=== PATIENT | female | born 1970 | race Caucasian/White ===

== ENCOUNTER 2019-07-28 05:09 | Inpatient (IN) ==
[2019-07-21 14:25] LABS: Appearance,Urine CLEAR; Bacteria,Urine 0 /hpf (0); Bilirubin,Urine NEG (NEG); Color,Urine STRAW; Culture Indicated,Urine NO; Glucose,Urine (UA) NEGATIVE (NEG); Ketones,Urine NEG (NEG); Leukocyte Esterase,Urine 75 /uL (NEG); Mucus,Urine FEW /hpf (0); Nitrate,Urine NEG (NEG); Protein,Urine NEG (NEG); Specific Gravity,Urine 1.005 (1.000-1.035); Urine Blood 0.03 mg/dL (<0.03); Urine Hyaline Cast 2 /lpf (0-2); Urine RBC < 1 /hpf (0-1); Urine Squamous Epithelial Cell 1 /hpf (0-4); Urine WBC < 1 /hpf (0-4); Urobilinogen,Urine NEG (NEG)
[2019-07-21 15:07] LABS: INR 0.9 (0.9-1.1); Prothrombin Time 12.3 sec (11.9-14.5)
[2019-07-21 15:22] LABS: Basophils # (Auto) 0 K/mcL (0.0-0.3); Basophils % (Auto) 0.6 % (0.0-2.0); Eosinophils # (Auto) 0 K/mcL (0.0-0.7); Eosinophils % (Auto) 0.4 % (0.0-7.0); Granulocytes % (Auto) 76.2 % (38.0-78.0); Hematocrit 39.6 % (36.0-48.0); Hemoglobin 13.2 g/dL (12.0-15.0); Lymphocytes # (Auto) 1.1 K/mcL (1.5-4.8); Lymphocytes % (Auto) 16.2 % (15.5-49.0); Mean Cell Volume 86.6 fL (80.0-100.0); Mean Corpuscular HGB Conc 33.4 g/dL (31.0-36.0); Mean Platelet Volume 9.1 fL (7.4-10.4); Monocytes # (Auto) 0.4 K/mcL (0.1-0.9); Monocytes % (Auto) 6.6 % (1.0-12.0); Platelet Count 214 K/mcL (140-440); RBC 4.57 M/mcL (4.00-5.20); Red Cell Distribution Width 14.6 % (11.5-14.5); WBC 6.7 K/mcL (4.5-11.0)
[2019-07-21 15:36] LABS: Blood Urea Nitrogen 16 mg/dl (6-20); Calcium 9.4 mg/dl (8.6-10.4); Carbon Dioxide 19 mmol/L (22-30); Chloride 100 mmol/L (96-108); Glomerular Filtration Rate 106; Glucose 84 mg/dL (70-105)
[~2019-07-28 05:09] MED LIST: IPRATROPIUM/ALBUTEROL 3 ML AMPUL.NEB NEB PRN; SCOPOLAMINE 1 PATCH PATCH TOPICAL PRN
[2019-07-28] MEDS ORDERED: CELECOXIB 200 MG CAPSULE PO SCH (06:00)
[2019-07-28] MEDS ORDERED: PREGABALIN 100 MG CAPSULE PO SCH (06:00)
[2019-07-28] MEDS ORDERED: 0.9 % SODIUM CHLORIDE 9 ML, KETOROLAC 30 MG, ROPIVACAINE HCL/PF 49.5 ML, EPINEPHrine 0.... IJ SCH (06:00)
[2019-07-28] MEDS ORDERED: oxyCODONE 10 MG TAB.ER.12H PO SCH (06:00)
[2019-07-28] MEDS ORDERED: ceFAZolin 2 GM in DEXTROSE 5% IN WATER 50 ML IV SCH (06:00)
[2019-07-28] MEDS ORDERED: GENTAMICIN SULFATE 800 MG/20 ML VIAL IR ONE (07:37)
[2019-07-28] MEDS ORDERED: ROPIVACAINE HCL/PF 20 ML VIAL IJ ONE (08:15)
[2019-07-28] MEDS ORDERED: ONDANSETRON 4 MG/2 ML VIAL IV ONE (08:15)
[2019-07-28] MEDS ORDERED: PROPOFOL 200 MG/20 ML VIAL IV ONE (08:15)
[2019-07-28] MEDS ORDERED: PHENYLEPHRINE 10 MG/ML VIAL IV ONE (08:15)
[2019-07-28] MEDS ORDERED: ePHEDrine 50 MG/ML AMPUL IV ONE (08:15)
[2019-07-28] MEDS ORDERED: GLYCOPYRROLATE 0.2 MG/ML VIAL IV ONE (08:15)
[2019-07-28] MEDS ORDERED: DEXAMETHASONE 4 MG/ML VIAL IV ONE (08:15)
[2019-07-28] MEDS ORDERED: KETAMINE 100 MG/ML ML IV ONE (08:15)
[2019-07-28] MEDS ORDERED: LIDOCAINE HCL/PF 100 MG/5 ML SYRINGE IV ONE (08:15)
[2019-07-28] MEDS ORDERED: TRANEXAMIC ACID 1,000 MG/10 ML VIAL IV ONE ×2 (08:15→09:42)
--- NOTE | 2019-07-28 09:40 | Brief Operative Note ---
Date of procedure: 07/28/19 Pre-op diagnosis: left knee oa Post-op diagnosis: same Procedure: left total knee arthroplasty Grafts/Implants: Yes Anesthesia: spinal Complications: none Surgeon: Bill Luevano Inker Machine: Forrest Castaneda Estimated blood loss (cc): 200 Tourniquet Time (Minutes): 50 Specimens Removed/Pathology: none sent Condition: stable Disposition: PACU
[2019-07-28] MEDS ORDERED: ONDANSETRON 4 MG ODT TABLET PO PRN (09:41)
--- NOTE | 2019-07-28 09:41 | Discharge Summary ---
Ortho Discharge - TKA - Patient Instructions Diet: Regular Diet Activity: ambulate with assistive device, weight bearing as tolerated Total Knee Protocol: For Total Knee: Start ROM GABRIEL with stationary bike or rocking chair. Work on gaining full extension of knee. Posterior dislocation precautions provided. Hip abductor strengthening and gait training instructions provided. Apply Cryocuff as instructed. Dressing Care: May shower in 2 days - Follow Up Plan Follow Up Appointments: Anisa Baron PA-C [Physician Photographer'S Assistant] - 08/11/19 8:40 am Disposition: Home, Self-Care Prognosis: Good Rehab Potential: Good I certify that the patient requires SNF services: No Overall status at discharge: patient is progressing back to baseline
[2019-07-28] MEDS ORDERED: BENZOCAINE/MENTHOL 1 LOZENGE PO PRN (09:42)
[2019-07-28] MEDS ORDERED: FLEETS ADULT ENEMA PR PRN (09:42)
[2019-07-28] MEDS ORDERED: POLYETHYLENE GLYCOL 3350 17 GM PACKET PO PRN (09:42)
[2019-07-28] MEDS ORDERED: MAGNESIUM HYDROXIDE 30 ML ORAL.SUSP PO PRN (09:42)
[2019-07-28] MEDS ORDERED: BISACODYL 10 MG SUPP.RECT PR PRN (09:42)
[2019-07-28] MEDS ORDERED: ONDANSETRON 4 MG/2 ML VIAL IV PRN ×2 (09:42→10:13)
[2019-07-28] MEDS ORDERED: ACETAMINOPHEN 325 MG TABLET PO PRN (09:42)
[2019-07-28] MEDS ORDERED: EPINEPHRINE 0.3 MG IM SCH (09:45)
--- NOTE | 2019-07-28 10:04 | Operative Note ---
DATE OF OPERATION: 07/28/2019 PREOPERATIVE DIAGNOSIS: Degenerative joint disease, left knee. POSTOPERATIVE DIAGNOSIS: Degenerative joint disease, left knee. PROCEDURE: Left total knee arthroplasty. SURGEON: Deepthi Luevano M.D. FOOD SERVICE ORDER CLERK SURGEON: Aristeo Castaneda PA-C. The PA's assistance was required for the safe and efficient completion of the entire case. This provider's expertise and technical skill were required throughout the case. The PA assisted with preoperative coordination, intraoperative retraction, wound closure, dressing and splint application, as well as postoperative documentation and care coordination. ANESTHESIA: Spinal with LMA assist. ESTIMATED BLOOD LOSS: 200 mL. COMPLICATIONS: None noted. SPECIMENS REMOVED: None. DRAINS: None. TOURNIQUET TIME: 50 minutes at 300 mmHg. IMPLANTS: DePuy CMW2 gentamicin bone cement 20 grams x4; DePuy Attune femoral posterior stabilized size 5 left, narrow; DePuy Attune tibial insert fixed bearing posterior stabilized size 5, 5 mm AOX; DePuy Attune tibial base fixed bearing size 4 cemented; DePuy Attune patella medialized dome 38 mm cemented AOX. INDICATIONS: The patient has had a long-standing history of worsening pain in the knee that has failed conservative treatment. Radiographs have confirmed advanced degenerative joint disease. After a long discussion about treatment options, the patient elected to proceed with a knee arthroplasty. The risks and benefits were discussed with the patient in detail including, but not limited to, the risks of anesthesia, problems with the heart or lungs related to anesthesia, infection, compromise or injury to the nerves and blood vessels, deep venous thrombosis, pulmonary embolism, pneumonia, continued pain after surgery, worsening pain or symptoms after surgery, swelling, loss of motion, instability, leg length discrepancy, and need for repeat surgery. DESCRIPTION OF PROCEDURE: The patient was seen in the pre-anesthesia waiting room where all questions were answered and the correct side and site were identified and marked. The patient was transferred to the operating room and administered the anesthetic and given pre-operative antibiotics. A time-out was then called. The extremity was prepped and draped, exsanguinated, and the tourniquet was inflated to 300 mmHg. A midline skin incision was then made with a standard medial parapatellar arthrotomy. Debridement of the menisci, ACL, and PCL was performed followed by balancing releases in the medial lateral plane. We then established intramedullary access to both the femur and tibia in a standard fashion. The femoral guide tashi was initially placed with the distal femoral guide, pinned into place, and the distal femoral cut was performed and checked with a flat plate. We then turned our attention to the tibia. The intramedullary guide was placed with the proximal tibial cutting block. The block was appropriately positioned off the affected side, varus and valgus was checked with the extra-medullary guide, and the block was pinned into place. The proximal tibial cut was performed and the tibia was prepared for the tibial implant with appropriate rotation. The tibia, femur, and posterior compartment were debrided of osteophytes, loose bodies, and meniscal fragments We then used the gap balancing technique to balance extension with the first two cuts and good balancing was obtained with a 10 millimeter gap block. We turned our attention back to the femur and used the referencing block and implant to size appropriately. Using the gap balancing technique for the flexion space we set our rotation of the femur off the tibial cut. Anesthesia gave the patient 1 gram of Tranexamic Acid via an intravenous route. We placed the 4 in 1 cutting block and made anterior, posterior, and chamfer cuts. Box plasty cuts were then made in a standard fashion for the posterior stabilized prosthesis. We then completed osteophyte release and posterior capsule release from the posterior compartment. Trials were placed and we chose the polyethylene insert thickness that provided the best stability in all planes. With the trials in place, we did a measured resection for a resurfacing patella. We sized the patella and placed the patella trial and performed a lateral facetectomy with the saw and rongeur. Good tracking was obtained. We removed all trials, irrigated and dried all cut surfaces. We cemented the components into place including tibia, femur and patella. We placed a trial liner and held the knee in full extension with the patella compressed while the cement cured. We then removed all excess cement and placed the final polyethylene tibiofemoral component. Irrigation with 3 liters of antibiotic saline was then performed using jet-lavage. We let the tourniquet down and coagulated bleeding vessels. We injected a 100 cubic centimeter volume including Ropivacaine 49.25 cubic centimeters at 5 milligrams per cubic centimeter, Ketorolac 30 milligrams, and Epinephrine 0.5 milligrams into 100 cubic centimeters volume of normal saline. We closed the retinaculum with # 2 Stratafix and 0 Vicryl. We closed the subcutaneous tissue and skin in layers out to Dermabond on the skin. A sterile pressure dressing was applied. All needle and sponge counts were correct. The patient was transferred to the recovery room in stable condition. DUSTIN:gerri Job ID: [id number] Doc ID: [id number] Deepthi Luevano MD
[2019-07-28] MEDS ORDERED: ACETAMINOPHEN 1,000 MG/100 ML BOTTLE IV ONE (10:13)
[2019-07-28] MEDS ORDERED: KETOROLAC 30 MG/ML VIAL IV PRN (10:13)
[2019-07-28] MEDS ORDERED: diphenhydrAMINE 50 MG/ML VIAL IV PRN (10:13)
[2019-07-28] MEDS ORDERED: fentaNYL 100 MCG/2 ML VIAL IV PRN (10:13)
[2019-07-28] MEDS ORDERED: IPRATROPIUM/ALBUTEROL 3 ML AMPUL.NEB NEB PRN (10:13)
[2019-07-28] MEDS ORDERED: LACTATED RINGERS 250 ML IV PRN (10:13)
[2019-07-28] MEDS ORDERED: NALOXONE HCL 0.4 MG/ML VIAL IV PRN (10:13)
[2019-07-28] MEDS ORDERED: PROMETHAZINE 25 MG/ML VIAL IV PRN (10:13)
[2019-07-28] MEDS ORDERED: MEPERIDINE 25 MG/ML SYRINGE IV PRN (10:13)
[2019-07-28] MEDS ORDERED: LACTATED RINGERS 1,000 ML IV SCH (10:15)
--- NOTE | 2019-07-28 10:54 | XRay Report ---
CLINICAL INFORMATION: Post-Op Total Knee COMPARISON: None. FINDINGS: Total knee prostheses is anatomically aligned. No osseous abnormality. Soft tissue swelling seen. IMPRESSION: Negative Interpreted and Authenticated by: Bill Holland 07/28/19
[2019-07-28] MEDS: LACTATED RINGERS 1,000 ML IV SCH ×2 (11:26→21:57)
[2019-07-28] MEDS: KETOROLAC 15 MG/ML VIAL IV SCH ×3 (12:04→23:32)
[2019-07-28] MEDS: METOCLOPRAMIDE 10 MG TABLET PO SCH ×3 (12:59→21:28)
[2019-07-28] MEDS: HYDROcodone/APAP 10/325MG TABLET PO PRN ×3 (12:59→23:32)
[2019-07-28] MEDS ORDERED: 0.9 % SODIUM CHLORIDE 500 ML IV ONE (13:39)
[2019-07-28] MEDS: 0.9 % SODIUM CHLORIDE 10 ML SYRINGE IV SCH ×2 (16:27→21:58)
[2019-07-28] MEDS: ceFAZolin 1 GM VIAL IV SCH ×2 (16:36→23:32)
--- NOTE | 2019-07-28 17:22 | Internal Medicine Consult Note ---
Medical - CN: HPI - Data of Consult Patient: new to practice Consult date: 07/28/19 Primary Care Provider: Bill Davila MD - Consult Narrative History of present illness: Ms. Pederson is a 49 year old F with a history of Navdeep-Danlos syndrome, PTSD, anxiety, depression, and a history of lymphoma and the ovarian cancer who u nderwent Left total knee arthroplasty by Dr. Snowden today. Her blood pressure was not found to be low/soft. Hospitalist service consult was requested by Dr. Snowden for managing blood pressure. When I saw this patient in her room, she only complaint of mild left leg pain. Otherwise she denied headache, dizziness, chest pain, shortness of breath, nausea, vomiting, abdominal pain, or dysuria. She told me that her blood pressure has been low. Normally her blood pressure can be 70- to 90. CC: Bill Luevano - Constitutional Constitutional: Present: as per HPI - EENT Eyes: Present: as per HPI - Cardiovascular Cardiovascular: Present: as per HPI - Respiratory Respiratory: Present: as per HPI - Gastrointestinal Gastrointestinal: Present: as per HPI - Musculoskeletal Musculoskeletal: Present: other (Left knee pain) - Integumentary Integumentary: Present: as per HPI - Neurological Neurological: Present: as per HPI - Psychiatric Psychiatric: Present: as per HPI - Hematologic/Lymphatic Hematologic/Lymphatic: Present: as per HPI Medical - CN: PMH Medical history: Navdeep-Danlos syndrome, PTSD, anxiety, depression, and a history of lymphoma and the ovarian cancer Family history: reviewed and not pertinent (Father had a stroke; mother has diabetes) Smoking status: Former smoker Medical - CN: Meds Home Medications Medication Instructions Recorded Confirmed Type clonazepam 1 mg tablet 1 mg PO BID 09/02/18 07/28/19 History duloxetine 30 mg capsule,delayed 120 mg PO DAILY cap 09/02/18 07/28/19 History release epinephrine 0.3 mg/0.3 mL 0.3 mg IM .COMPLEX 09/02/18 07/28/19 History injection, auto-injector famotidine 40 mg tablet 40 mg PO BID 09/02/18 07/28/19 History latanoprost 0.005 % eye drops 1 drp OU HS 09/02/18 07/28/19 History metoclopramide HCl 5 mg tablet 5 mg PO ACHS tab 09/02/18 07/28/19 History ondansetron 4 mg disintegrating 4 mg PO DAILYP PRN 09/02/18 07/28/19 History tablet polyethylene glycol 3350 17 17 gm PO MOWEFR@0900 g 09/02/18 07/28/19 History gram/dose oral powder prazosin 1 mg capsule 2 mg PO HS cap 09/02/18 07/28/19 History Montelukast [Singular] 10 mg PO DAILY 07/21/19 07/28/19 History Pregabalin 100 mg PO BID 07/21/19 07/28/19 History Aspirin [Aspirin EC] 81 mg PO BID #30 tablet. 07/28/19 Rx HYDROcodone/APAP 10/325MG [[place] 1 - 2 tab PO Q4H PRN #60 tab 07/28/19 Rx 10-325Mg] Allergies Allergy/AdvReac Type Severity Reaction Status Date / Time Bee Pollen Allergy Severe Anaphylaxis Verified 02/14/19 15:50 Ritodrine [From Yutopar] AdvReac Severe Other Verified 07/28/19 05:44 gabapentin AdvReac Intermediate Seizure Verified 07/28/19 05:44 Medical - CN: Exam - Constitutional Vitals: Temp Pulse Resp BP Pulse Ox 98.2 F 68 18 85/49 97 07/28/19 10:59 07/28/19 14:32 07/28/19 14:32 07/28/19 14:32 07/28/19 14:32 General appearance: no acute distress - Eye Eye exam: Present: EOMI, PERRL - ENT ENT exam: Present: normal exam - Neck Neck exam: Present: normal inspection - Respiratory Respiratory exam: Present: normal respiratory exam, CTAB - Cardiovascular Cardiovascular exam: Present: normal rate and rhythm. Absent: JVD - GI/Abdominal GI/Abdominal exam: Present: normal bowel sounds, soft. Absent: tenderness - Extremities Exam Extremities exam: Absent: pedal edema (Surgical dressing on left leg dry) - Neurological Exam Neurological exam: Present: alert, altered, oriented X3. Absent: motor sensory deficit (No focal neurological deficit) - Psychiatric Psychiatric exam: Present: normal affect, normal mood - Skin Skin exam: Present: warm Medical - CN: Result - Labs CBC & Chem 7: 07/21/19 11:42 07/21/19 11:42 Medical - CN: A/P - Narrative A/P Narrative: Assessment: 1. Left knee OA, s/p Left total knee arthroplasty by Dr. Luevano - 07/28/2019 2. Hypotension 3. Anxiety/depression 4. PTST 5. Navdeep-Danlos syndrome 6. Hx of lymphoma and overian cancer. Plan: 1. Postop management including DVT prophylaxis and pain control by Orth team 2. As per patient, her blood pressure has been low. Normally her blood pressure can be 70- to 90. 500ml normal saline bolus was given. Continue IV fluid. Continue to monitor her blood pressure 3. Continue her home anxiety and depression medication 4. DVT prophylaxis: Managed by Ortho team 5. CODE STATUS: Full
[2019-07-28] MEDS: 0.9 % SODIUM CHLORIDE 1,000 ML IV SCH (17:36)
[2019-07-28] MEDS ORDERED: LATANOPROST OPHTH DROPS 2.5ML BOTTLE OU SCH (21:00)
[2019-07-28] MEDS ORDERED: SENNOSIDES 1 TABLET PO SCH (21:00)
[2019-07-28] MEDS ORDERED: PRAZOSIN 1 MG CAPSULE PO SCH (21:00)
[2019-07-28] MEDS: PREGABALIN 100 MG CAPSULE PO SCH (21:26)
[2019-07-28] MEDS: FAMOTIDINE 20 MG TABLET PO SCH (21:27)
[2019-07-28] MEDS: DOCUSATE SODIUM 100 MG CAPSULE PO SCH (21:27)
[2019-07-28] MEDS: clonazePAM 1 MG TABLET PO SCH (21:28)
[2019-07-28] MEDS ORDERED: ASPIRIN 81 MG TAB.CHEW ONE (21:33)
[2019-07-28] MEDS: METHOCARBAMOL 1,000 MG/10 ML VIAL IV PRN (21:39)
[2019-07-28] MEDS: ASPIRIN 325 MG ENTERIC COATED TABLET PO SCH (21:40)
[2019-07-29] MEDS: LACTATED RINGERS 1,000 ML IV SCH ×2 (02:27→09:45)
[2019-07-29] MEDS: HYDROcodone/APAP 10/325MG TABLET PO PRN ×3 (03:22→14:35)
[2019-07-29] MEDS: METHOCARBAMOL 1,000 MG/10 ML VIAL IV PRN (03:22)
[2019-07-29] MEDS: 0.9 % SODIUM CHLORIDE 10 ML SYRINGE IV SCH ×2 (05:18→12:56)
[2019-07-29] MEDS: KETOROLAC 15 MG/ML VIAL IV SCH ×2 (06:14→11:45)
[2019-07-29 06:40] LABS: Hematocrit 29.7 % (36.0-48.0); Hemoglobin 9.9 g/dL (12.0-15.0)
[2019-07-29] MEDS: 0.9 % SODIUM CHLORIDE 1,000 ML IV SCH (06:52)
[2019-07-29] MEDS: METOCLOPRAMIDE 10 MG TABLET PO SCH ×2 (07:17→11:45)
[2019-07-29] MEDS ORDERED: MONTELUKAST 10 MG TABLET PO SCH (09:00)
[2019-07-29] MEDS ORDERED: DULoxetine 30 MG CAPSULE PO SCH (09:00)
[2019-07-29] MEDS: DOCUSATE SODIUM 100 MG CAPSULE PO SCH (09:36)
[2019-07-29] MEDS: ASPIRIN 325 MG ENTERIC COATED TABLET PO SCH (09:36)
[2019-07-29] MEDS: clonazePAM 1 MG TABLET PO SCH (09:36)
[2019-07-29] MEDS: FAMOTIDINE 20 MG TABLET PO SCH (09:36)
[2019-07-29] MEDS: PREGABALIN 100 MG CAPSULE PO SCH (09:37)
--- NOTE | 2019-07-29 11:55 | Internal Med Progress Note ---
Medical - PN: Subj Patient information: Note initiated : 07/29/19 at 11:52 am Service Date, if different from initiated Date: [] Patient: Marilee Pederson a 49 y/o F admitted on 07/28/19 for Left Total Knee Arthroplasty . Chief Complaint: [] Ms. Pederson is a 49 year old F with a history of Navdeep-Danlos syndrome, PTSD, anxiety, depression, and a history of lymphoma and the ovarian cancer who underwent Left total knee arthroplasty by Dr. Snowden 07/28/2019. Her blood pressure was not found to be low/soft. Hospitalist service consult was request ed by Dr. Snowden for managing blood pressure. Today patient complains of left knee mild pain. Otherwise patient is fine. Denies dizziness, nausea, or vomiting. Blood pressure was between 92-97 this morning Overnight events - Constitutional Vitals: Vital Signs Temp Pulse Resp BP Pulse Ox 98.0 F 63 18 92/56 98 07/29/19 08:00 07/29/19 08:00 07/29/19 08:00 07/29/19 08:00 07/29/19 08:00 Period Temp Pulse Resp BP Sys/Garrett Pulse Ox Last 24 Hr 97.9 F-98.0 F 56-82 16-20 76-104/44-74 96-100 Intake and Output 07/28/19 07/29/19 07/29/19 21:59 05:59 13:59 Intake Total 2560 1010 1795 Output Total 2850 2050 800 Balance -290 -1040 995 Weight 74.389 kg Intake & Output: Intake & Output 07/28/19 07/29/19 07/29/19 21:59 05:59 13:59 Intake Total 2560 1010 1795 Output Total 2850 2050 800 Balance -290 -1040 995 Weight 74.389 kg Intake: IV 1195 Sodium Chloride 0.9% 1,000 ml @ 995 75 mls/hr IV .[id number] JOSE M Rx#: [id number] Lactated Ringers 1,000 ml @ 125 200 mls/hr IV .Q8H JOSE M Rx#: [id number] Oral 2560 1010 600 Output: Void Amount 2850 2050 800 Other: Meal Dinner Breakfast Percent of Meal Consumed 75% 100% Feeding Ability Independent Urine Appearance Clear Clear Clear Urine Color Pale Bright Yellow Dark Yellow Urine Odor Normal # Voids 1 General appearance: no acute distress - Head Head exam: Present: normal inspection - Eye Eye exam: Present: EOMI, PERRL - ENT ENT exam: Present: mucous membranes moist - Neck Neck exam: Present: normal inspection - Respiratory Respiratory exam: Present: normal respiratory exam, CTAB - Cardiovascular Cardiovascular exam: Present: normal rate and rhythm, RRR - GI/Abdominal GI/Abdominal exam: Present: normal bowel sounds, soft. Absent: tenderness - Extremities Exam Extremities exam: Absent: Denzel's sign (Surgical dressing dry) - Neurological Exam Neurological exam: Present: alert, oriented X3. Absent: motor sensory deficit - Psychiatric Psychiatric exam: Present: normal mood - Skin Skin exam: Present: warm Medical - PN: Obj Da - Labs CBC & Chem 7: 07/29/19 05:12 07/21/19 11:42 Labs: Abnormal Lab Results 07/29/19 05:12 Hgb 9.9 L Hct 29.7 L Meds: Medications Acetaminophen (Tylenol) 650 mg PO Q6HP PRN PRN Reason: PAIN/FEVER > 101 Hydrocodone Bitart/Acetaminophen ([place] 10/325mg) 0 tab PO Q4HP PRN PRN Reason: PAIN LEVEL 3-6 Last Admin: 07/29/19 10:10 Dose: 2 tab Documented by: Aspirin (Ecotrin) 81 mg PO BID [facility] Last Admin: 07/29/19 09:36 Dose: 81 mg Documented by: Bisacodyl (Dulcolax) 10 mg [place] Q2-3DAYS PRN PRN Reason: Constipation Clonazepam (Klonopin) 1 mg PO BID [facility] Last Admin: 07/29/19 09:36 Dose: 1 mg Documented by: Docusate Sodium (Colace) 100 mg PO BID [facility] Last Admin: 07/29/19 09:36 Dose: 100 mg Documented by: Duloxetine HCl (Cymbalta) 120 mg PO DAILY [facility] Last Admin: 07/29/19 09:35 Dose: 120 mg Documented by: Famotidine (Pepcid) 40 mg PO BID [facility] Last Admin: 07/29/19 09:36 Dose: 40 mg Documented by: Lactated Ringer's (Lactated Ringers) 1,000 mls @ 125 mls/hr IV .Q8H [facility] Last Admin: 07/29/19 09:45 Dose: Not Given Documented by: Sodium Chloride (Sodium Chloride 0.9%) 1,000 mls @ 75 mls/hr IV .[id number] [facility] Last Admin: 07/29/19 06:52 Dose: 75 mls/hr Documented by: Ketorolac Tromethamine (Toradol) 15 mg IV Q6 [facility] Stop: 07/30/19 06:01 Last Admin: 07/29/19 11:45 Dose: 15 mg Documented by: Latanoprost (Xalatan Ophth Drops) 1 gtt OU HS [facility] Last Admin: 07/28/19 21:40 Dose: 1 gtt Documented by: Magnesium Hydroxide (Milk Of Magnesia) 30 ml PO BIDP PRN PRN Reason: Constipation Methocarbamol (Robaxin) 750 mg IV Q6HP PRN PRN Reason: Muscle Spasm Last Admin: 07/29/19 03:22 Dose: 750 mg Documented by: Metoclopramide HCl (Reglan) 5 mg PO [facility] Last Admin: 07/29/19 11:45 Dose: 5 mg Documented by: Montelukast Sodium (Singular) 10 mg PO DAILY [facility] Last Admin: 07/29/19 09:35 Dose: 10 mg Documented by: Morphine Sulfate (Morphine) 0 mg IV Q1HP PRN PRN Reason: PAIN LEVEL > 6 Last Admin: 07/28/19 21:51 Dose: 2 mg Documented by: Ondansetron HCl (Zofran Odt) 4 mg PO DAILYP PRN PRN Reason: Nausea Ondansetron HCl (Zofran) 4 mg IV Q4HP PRN PRN Reason: Nausea And Vomiting Polyethylene Glycol (Miralax) 17 gm PO MOWEFR@0900 [facility] Polyethylene Glycol (Miralax) 17 gm PO DAILYP PRN PRN Reason: Constipation Prazosin HCl (Minipress) 2 mg PO [facility] Last Admin: 07/28/19 21:27 Dose: 2 mg Documented by: Pregabalin (Lyrica) 100 mg PO BID [facility] Last Admin: 07/29/19 09:37 Dose: 100 mg Documented by: Senna (Senokot) 2 tab PO [facility] Last Admin: 07/28/19 21:27 Dose: 2 tab Documented by: Sodium Biphosphate/Sodium Phosphate (Fleets Adult) 1 dose [place] Q3-4DAYS PRN PRN Reason: Constipation Sodium Chloride (Saline Flush) 10 ml IV Q8 JOSE M Last Admin: 07/29/19 05:18 Dose: Not Given Documented by: Throat Lozenges (Cepacol) 1 lozenge PO PRN PRN PRN Reason: Sore Throat Medical - PN: A/P - Time Spent With Patient Total time spent is greater than 50% in coordination of care (as documented) at patient's floor/unit and/or counseling patient: - Narrative A/P Narrative: Assessment: 1. Left knee OA, s/p Left total knee arthroplasty by Dr. Luevano - 07/28/2019 2. Hypotension 3. Anxiety/depression 4. PTST 5. Navdeep-Danlos syndrome 6. Hx of lymphoma and overian cancer. 7. Anemia of blood loss Plan: 1. Postop management including DVT prophylaxis and pain control by Orth team 2. As per patient, her blood pressure has been low. Normally her blood pressure can be 70- to 90. BP stable. asymptomatic. Continue IV fluid. Continue to monitor her blood pressure 3. Continue her home anxiety and depression medication 4. Monitor H/H 5. DVT prophylaxis: Managed by Ortho team 6. CODE STATUS: Full Hospitalist service will sign off. Please call at any time if you needed. Thank you very much for the opportunity to participate in the care of the pt. Medical - PN: Qual - VTE Deep Vein Thrombosis/Pulmonary Embolism Present on Admission: No
[2019-07-31] MEDS ORDERED: POLYETHYLENE GLYCOL 3350 17 GM PACKET PO SCH (09:00)
== END 2019-07-29 14:52 | disposition home or self-care (01) | DRG 470 ==
LOC: MEDSUR 05:09
PROVIDERS: ADMIT Orthopaedic Surgery Sports Medicine; ATTEND Orthopaedic Surgery Sports Medicine